=== PATIENT | male | born 2000 | race Caucasian/White ===

== ENCOUNTER 2019-04-20 16:15 | Outpatient (RCR) | payer BC | END 2019-04-28 11:56 | disposition home or self-care (01) | LOC: WSC 16:15 | DX: Z01.818 Encounter for other preprocedural examination (principal); S83.511A Sprain of anterior cruciate ligament of right knee, initial encounter ==

== ENCOUNTER 2019-06-10 08:00 | Outpatient (RCR) | payer BC | END 2019-07-28 | disposition home or self-care (01) | LOC: WSPT | DX: S83.511A Sprain of anterior cruciate ligament of right knee, initial encounter (principal); Z98.890 Other specified postprocedural states | CPT/HCPCS: G0283-GP ==